=== PATIENT | female | born 1970 | race Caucasian/White ===

== ENCOUNTER 2020-12-11 18:26 | Emergency (ER) | payer OTHER ==
[~2020-12-11] VITALS: Ht 154.9 cm; Wt 61.4 kg
[2020-12-11] MEDS ORDERED: TRAZ-257 PO (18:35)
[2020-12-11 19:12] LABS: BASOPHILS % (AUTO) 0.2 % (0.0-2.0); EOSINOPHILS % (AUTO) 0.6 % (1.0-6.0); HEMATOCRIT 34.8 % (36-46); HEMOGLOBIN 11.2 g/dL (12.0-16.0); LYMPHOCYTES # (AUTO) 2.1 K/uL (1.0-4.8); MEAN CORPUSCULAR HEMOGLOBIN 29.3 pg (26.0-34.0); MEAN CORPUSCULAR HGB CONC 32.3 G/dL (31.0-37.0); MEAN CORPUSCULAR VOLUME 91 fL (80-100); MONOCYTES # (AUTO) 0.4 K/uL (0.1-1.0); MONOCYTES % (AUTO) 8.2 % (2.0-9.0); NEUTROPHILS # (AUTO) 2.4 K/uL (1.8-7.7); PLATELET COUNT (AUTO) 294 K/uL (150-450); RED BLOOD CELL COUNT(AUTO) 3.84 MIL/uL (4.00-5.20); RED CELL DISTRIBUTION WIDTH 13.5 % (11.5-14.5)
[2020-12-11 19:24] LABS: ANION GAP 22 mmol/L (8-16); CALCIUM, TOTAL 8.1 mg/dL (8.8-10.5); CARBON DIOXIDE 17 mmol/L (22-29); CHLORIDE 97 mmol/L (98-107); CREATININE 0.78 mg/dL (0.60-1.30); GLOMERULAR FILTR. RATE CALC > 60 mL/min (>60); GLUCOSE,RANDOM 97 mg/dL (70-110); POTASSIUM 3.1 mmol/L (3.5-5.1); SODIUM SERUM 136 mmol/L (136-145); UREA NITROGEN, BLOOD 14 mg/dL (7-18)
[2020-12-11 19:26] LABS: PROTHROMBIN TIME 10.6 SEC (9.4-11.6)
[2020-12-11 19:26] LABS: COVID AG,FIA SOURCE NASOPHARYNGEAL
[2020-12-11 19:32] LABS: B-TYPE NATRIURETIC PEPTIDE 28 pg/mL (0-100)
[2020-12-11] MEDS ORDERED: POTASSIUM CHLORIDE 20 MEQ ER TABLET PO ONE (19:45)
[2020-12-11] MEDS ORDERED: ONDANSETRON HCL 4 MG/2 ML VIAL IVP ONE (19:45)
[2020-12-11 19:53] LABS: ACETAMINOPHEN < 2 mcg/mL (10-30); ALANINE AMINOTRANSFERASE 37 U/L (12-78); ALBUMIN 3.2 g/dL (3.4-5.0); ALKALINE PHOSPHATASE 44 U/L (46-116); ASPARTATE AMINOTRANSFERASE 21 U/L (15-37); BILIRUBIN,TOTAL 0.2 mg/dL (0.1-1.0); CREATINE KINASE, TOTAL ONLY 28 U/L (26-192); HCG,QUANTITATIVE < 1 mIU/mL (0-6); PHOSPHORUS 2.8 mg/dL (2.5-4.9)
[2020-12-11 20:11] LABS: SALICYLATE 1.1 mg/dL (2.8-20.0)
[2020-12-11 21:04] VITALS: BP 128/74
== END 2020-12-11 22:09 | disposition short-term general hospital (02) ==
LOC: EMS 18:29
DX: T43.211A Poisoning by selective serotonin and norepinephrine reuptake inhibitors, accidental (unintentional), initial encounter (principal); F41.9 Anxiety disorder, unspecified; F17.210 Nicotine dependence, cigarettes, uncomplicated; Z20.822 Contact with and (suspected) exposure to COVID-19; Y92.89 Other specified places as the place of occurrence of the external cause
CPT/HCPCS: 71045; 80053; 82550; 83735; 83880; 84100; 84484; 84702; 85025; 85610; 85730; 87426; 93005; 96374; 99285; G0480; J2405; G0481